=== PATIENT | male | born 1975 | race Caucasian/White ===

== ENCOUNTER → 2018-12-01 13:18 | Outpatient (CLI) | payer MEDICAID, SELFPAY ==
--- NOTE | 2018-12-01 13:21 | RAD_ITS ---
STUDY: X-RAY - LEFT ANKLE REASON FOR EXAM: Male, 43 years old. Lateral ankle pain. No history of trauma. TECHNIQUE: 3 view(s) of the ankle. COMPARISON: None. FINDINGS: Normal visualized distal tibia and fibula. Normal medial and lateral malleoli. Normal tibiotalar articulation and ankle mortise. Normal visualized talus and calcaneus. The visualized subtalar, talonavicular, calcaneocuboid and tarsal articulations are normal. The soft tissue structures are unremarkable. RAD/Ankle min 3 Views IMPRESSION: Normal x-ray examination of the ankle. Electronically Signed: Neri Albarran, at 13:37 EDT , Service support ,
== END ==
PROVIDERS: Visit Provider Physician Assistant
DX: M25.572 Pain in left ankle and joints of left foot (principal)
CPT/HCPCS: 73610